=== PATIENT | male | born 1970 | race Caucasian/White ===

== ENCOUNTER 2020-08-15 17:57 | Emergency (ER) | payer OTHER ==
[~2020-08-15] VITALS: Ht 182.9 cm; Wt 90.9 kg
[2020-08-15] MEDS ORDERED: DEXAMETHASONE SOD PHOS 4 MG/ML VIAL IVP ONE (18:30)
--- NOTE | 2020-08-15 18:44 | PHYS DOC ---
Past Medical History Past Medical History: GERD, High Cholesterol, Hypertension, Other Additional Past Medical Histor: BPH, GOUT Past Surgical History: Cholecystectomy, Other Additional Past Surgical Histo: R. MENISCUS, R. ANKLE, GASTRIC BYPASS, HERNIA Smoking Status: Never Smoker Alcohol Use: Occasionally General Adult EDM: Chief Complaint: MECHANICAL FALL HPI: HPI: Patient is a 49 year old male presents via EMS for mechanical fall that occurred 5 hours ago. He is currently complaining of right-sided lower back pain and right wrist pain. His back pain is greater on the right side than on the left side. Patient states that he was sitting on the toilet when he felt that his legs were tingling. When he tried to stand up he was unable to maintain his balance and ended up falling on his bottom and braced his fall with his right hand. Patient denies any head trauma from the fall. After the fall he was able to get up and go lie down on his bed. He notes that 3 hours later when he was trying to get out of his bed he was unable to do so and called EMS to bring him to the emergency department. He notes that he was drinking 2 "glasses" of fireball whiskey during the day. Patient's gave him a dose of her muscle relaxant and Tylenol at home and patient was given fentanyl by EMS. He does not use tobacco products or any other illicit drugs. There are no further complaints at this time. Review of Systems: Review of Systems: Constitutional: Denies fever or chills Eyes: Denies redness or eye pain HENT: Denies nasal congestion or sore throat Respiratory: Denies cough or shortness of breath Cardiovascular: Denies chest pain or palpitations GI: Denies abdominal pain, nausea, or vomiting : Denies dysuria or hematuria Musculoskeletal: Right-sided back pain and right wrist pain Integument: Denies rash or skin lesions Neurologic: Denies headache, focal weakness or sensory changes Complete systems were reviewed and found to be within normal limits, except as documented in this note. Current Medications: Current Medications Medications (Trade) Dose Ordered Sig/Martine Start Time Stop Time Status Last Admin Dose Admin Dexamethasone Sodium Phosphate (Decadron) 10 mg 1X ONCE 08/15/20 18:30 08/15/20 18:31 DC Orphenadrine Citrate (Norflex) 60 mg 1X ONCE 08/15/20 18:45 08/15/20 18:46 UNV Allergies: Allergies: Allergies Coded Allergies Type Severity Reaction Last Updated Verified NSAIDS (Non-Steroidal Anti-Inflamma Adverse Reaction Unknown 08/15/20 Yes Physical Exam: PE: Constitutional: Well developed, well nourished, moderate distress, non-toxic appearance HENT: Normocephalic, atraumatic Eyes: PERRL, EOMI, conjunctiva normal, no discharge Neck: Normal range of motion, mild cervical spine tenderness to palpation Lungs & Thorax: No respiratory distress, equal chest rise and fall Abdomen: Soft, no tenderness Skin: Warm, dry, no erythema, no rash Back: Right-sided SI joint tenderness to palpation Extremities: Right wrist pain tenderness to palpation (pain is exacerbated with extension and adduction), mild bony tenderness at the right radial styloid process, no edema Neurologic: Alert and oriented X 3, normal motor function, normal sensory function, no focal deficits noted Psychologic: Affect normal, judgment normal Current Patient Data: Vital Signs: Vital Signs Date Time Temp Pulse Resp B/P (MAP) Pulse Ox O2 Delivery O2 Flow Rate FiO2 08/15/20 18:00 98.0 64 16 126/83 (97) 100 Room Air 98.0 EKG: EKG: [] Radiology/Procedures: Radiology/Procedures: PROCEDURE: CT LUMBAR SPINE WO CONTRAST EXAM: CT head, cervical spine, and lumbar spine without contrast INDICATION: Pain status post fall COMPARISON: None TECHNIQUE: Axial CT imaging through the head, cervical spine, and lumbar spine without intravenous contrast. Sagittal and coronal reformats of the cervical and lumbar spine were obtained. One or more of the following individualized dose reduction techniques were utilized for this examination: 1. Automated exposure control 2. Adjustment of the mA and/or kV according to patient size 3. Use of iterative reconstruction technique. FINDINGS: CT head: The ventricles and sulci are normal. Nash-white matter differentiation is maintained. There is no intracranial hemorrhage, acute infarct, or mass lesion. Basal cisterns are clear. The calvarium and scalp are intact. The visualized paranasal sinuses and mastoid air cells are clear. Globes and orbits are intact.. CT cervical spine: No acute fracture. Alignment is normal. The craniocervical junction and atlantoaxial interval are maintained. Mild disc space narrowing and uncovertebral joint proliferation at C5-C6. Moderate right foraminal narrowing at C5-C6. There are old spinous process fractures of T1 and T2. No canal narrowing. Prevertebral soft tissues normal. CT lumbar spine: There 5 nonrib-bearing lumbar vertebral bodies. There is an acute T12 compression fracture with 25 percent vertebral body height loss. No retropulsion of cortex. No resultant canal or foraminal narrowing. No other fracture. Alignment is normal. Disc spaces are maintained. There are small marginal osteophytes at L1-L2 through L3-L4. Small disc bulge and mild facet arthrosis at L4-L5 and L5-S1. Paraspinous musculature and visualized portion of the abdomen are unremarkable. IMPRESSION: 1. No acute intracranial abnormality. 2. No acute osseous abnormality of the cervical spine. 3. Acute T12 compression fracture with 25 percent vertebral body height loss and no retropulsion of cortex. Electronically signed by: Agnes Copeland MD (08/15/2020 7:39 PM) [id number][] PROCEDURE: WRIST 3V RIGHT XR RT WRIST 3VIEWS History: Reason: pain s/p fall / Spl. Instructions: / History: Technique: 3 views right wrist. Comparison: None. Findings: Normal alignment. No fracture. Dorsal wrist soft tissue swelling. Impression: 1. No acute osseous abnormality. 2. Dorsal wrist soft tissue swelling. Electronically signed by: Dennis Devlin DO (08/15/2020 7:03 PM) [facility] Course & Med Decision Making: Course & Med Decision Making Patient is a 49-year-old male who arrives to the ED by EMS after mechanical fall. He was given fentanyl by EMS and took a muscle relaxer and Tylenol at home. K-tracs reviewed and patient does not have any current opioid prescriptions. Patient was given pain medication in the ER with mild relief of his pain. Imaging ordered in the ED showed T12 compression fracture with 25% vertebral body height loss. Mika wrap was placed on patient's right wrist and he was educated on management of his right wrist pain. Plan of care was discussed and patient was referred to physical medicine and rehabilitation for potential further imaging and treatment. Patient stable for discharge with outpatient follow-up with PCP. Discussed findings and plan with patient, who acknowledges understanding and agreement. [] Dragon Disclaimer: Dragon Disclaimer: This electronic medical record was generated, in whole or in part, using a voice recognition dictation system. Departure Departure Impression: Primary Impression: Fall Qualified Codes: W19.XXXA - Unspecified fall, initial encounter Additional Impressions: Compression fracture of body of thoracic vertebra Right wrist sprain Qualified Codes: S63.501A - Unspecified sprain of right wrist, initial encounter Low back pain Qualified Codes: M54.5 - Low back pain Disposition: 01 DC HOME SELF CARE/HOMELESS Condition: STABLE Referrals: FRANKLYN GUAN MD Patient Instructions: Back Pain, Adult, [id number], Back, Compression Fracture, Elastic Bandage and RICE, Fall Prevention and Home Safety, [id number], Wrist Sprain with [facility]hab[facility] Scripts Orphenadrine Citrate (ORPHENADRINE CITRATE) 100 Mg Tablet.er 100 MG PO BID PRN for MUSCLE PAIN, #14 TAB Prov: PIETER MCNALLY DO 08/15/20 Prednisone (PREDNISONE) 20 Mg Tablet 2 TAB PO DAILY, #8 TAB Start this prescription tomorrow, Tuesday08/16/20 Prov: PIETER MCNALLY DO 08/15/20 Hydrocodone Bit/Acetaminophen (HYDROCODONE-APAP 5-325 ) 1 Tab Tablet 0.5-1 TAB PO PRN Q6HRS PRN for PAIN, #14 TAB 0 Refills Prov: PIETER MCNALLY DO 08/15/20 PIETER MCNALLY DO Aug 15, 2020 18:43
[2020-08-15] MEDS ORDERED: ORPHENADRINE CITRATE 60 MG/2 ML VIAL. IV ONE (18:45)
--- NOTE | 2020-08-15 19:06 | RAD ---
XR RT WRIST 3VIEWS History: Reason: pain s/p fall / Spl. Instructions: / History: Technique: 3 views right wrist. Comparison: None. Findings: Normal alignment. No fracture. Dorsal wrist soft tissue swelling. Impression: 1. No acute osseous abnormality. 2. Dorsal wrist soft tissue swelling. Electronically signed by: Dennis Devlin DO (08/15/2020 7:03 PM) [facility] [place]
--- NOTE | 2020-08-15 19:42 | RAD ---
EXAM: CT head, cervical spine, and lumbar spine without contrast INDICATION: Pain status post fall COMPARISON: None TECHNIQUE: Axial CT imaging through the head, cervical spine, and lumbar spine without intravenous co ntrast. Sagittal and coronal reformats of the cervical and lumbar spine were obtained. One or more of the following individualized dose reduction techniques were utilized for this examinat ion: 1. Automated exposure control 2. Adjustment of the mA and/or kV according to patient size 3. Use of iterative reconstruction technique. FINDINGS: CT head: The ventricles and sulci are normal. Nash-white matter differentiation is maintained. There is no in tracranial hemorrhage, acute infarct, or mass lesion. Basal cisterns are clear. The calvarium and sca lp are intact. The visualized paranasal sinuses and mastoid air cells are clear. Globes and orbits ar e intact.. CT cervical spine: No acute fracture. Alignment is normal. The craniocervical junction and atlantoaxial interval are paige ntained. Mild disc space narrowing and uncovertebral joint proliferation at C5-C6. Moderate right for aminal narrowing at C5-C6. There are old spinous process fractures of T1 and T2. No canal narrowing. Prevertebral soft tissues normal. CT lumbar spine: There 5 nonrib-bearing lumbar vertebral bodies. There is an acute T12 compression fr acture with 25 percent vertebral body height loss. No retropulsion of cortex. No resultant canal or f oraminal narrowing. No other fracture. Alignment is normal. Disc spaces are maintained. There are sma ll marginal osteophytes at L1-L2 through L3-L4. Small disc bulge and mild facet arthrosis at L4-L5 an d L5-S1. Paraspinous musculature and visualized portion of the abdomen are unremarkable. IMPRESSION: 1. No acute intracranial abnormality. 2. No acute osseous abnormality of the cervical spine. 3. Acute T12 compression fracture with 25 percent vertebral body height loss and no retropulsion of c ortex. Electronically signed by: Agnes Copeland MD (08/15/2020 7:39 PM) [id number]
[2020-08-15] MEDS ORDERED: HYDROcodone/APAP 5/325MG 1 TAB TABLET PO ONE (20:15)
[2020-08-15] MEDS ORDERED: ORPH100T PO (20:17)
[2020-08-15] MEDS ORDERED: PRED20TA PO (20:17)
[2020-08-15] MEDS ORDERED: HYDR-2761 PO (20:17)
[2020-08-15 20:51] VITALS: BP 147/85
== END 2020-08-15 20:51 | disposition home or self-care (01) ==
LOC: ER 17:57
DX: S63.501A Unspecified sprain of right wrist, initial encounter (principal); M48.54XA Collapsed vertebra, not elsewhere classified, thoracic region, initial encounter for fracture; M54.5 Low back pain; E78.00 Pure hypercholesterolemia, unspecified; I10 Essential (primary) hypertension; K21.9 Gastro-esophageal reflux disease without esophagitis; M10.9 Gout, unspecified; Z90.49 Acquired absence of other specified parts of digestive tract; Z95.1 Presence of aortocoronary bypass graft; Z88.6 Allergy status to analgesic agent; W18.39XA Other fall on same level, initial encounter; Y93.89 Activity, other specified; Y92.89 Other specified places as the place of occurrence of the external cause; Y99.8 Other external cause status
CPT/HCPCS: 70450; 72125; 72131; 73110; 96374; 96375; 99285; J1100; J2360